=== PATIENT | female | born 1965 | race Caucasian/White ===

== ENCOUNTER 2017-07-31 21:07 | Inpatient (IN) | payer OTHER ==
[2017-07-31] MEDS ORDERED: LORAZEPAM 2 MG INJ IV (23:00)
[2017-07-31] MEDS ORDERED: ONDANSETRON 4 MG TAB PO (23:00)
[2017-07-31] MEDS: LEVETIRACETAM 750 MG TAB PO (23:00)
[2017-07-31] MEDS ORDERED: NACL 0.9% 3 ML SYG IV (23:00)
[2017-07-31 23:59] LABS: ADD MAN DIFF? NO
[2017-08-01 00:01] LABS: WHITE BLOOD COUNT 6.5 10^3/ul (4.8-10.8)
[2017-08-01 00:01] LABS: BASOPHILS % 0.5 % (0.0-2.0); EOSINOPHILS # 0.1 10^3/ul (0.0-0.5); EOSINOPHILS % 0.9 % (0.0-7.0); HEMATOCRIT 38.8 % (37.0-47.0); HEMOGLOBIN 13.8 g/dl (12.0-16.0); LYMPHOCYTES # 1.7 10^3/ul (0.8-2.9); LYMPHOCYTES % 26.2 % (15.0-51.0); MEAN CORPUSCULAR HEMOGLOBIN 32.7 pg (29.0-33.0); MEAN CORPUSCULAR HGB CONC 35.6 g/dl (32.0-37.0); MEAN CORPUSCULAR VOLUME 91.9 fl (82.0-101.0); MEAN PLATELET VOLUME 9.8 fl (7.4-10.4); MONOCYTE # 0.8 10^3/ul (0.3-0.9); MONOCYTES % 11.7 % (0.0-11.0); NEUTROPHIL # 3.9 10^3/ul (1.6-7.5); NEUTROPHILS % 60.5 % (39.0-77.0); PLATELET COUNT 179 10^3/UL (140-415); RED BLOOD COUNT 4.22 10^6/ul (4.20-5.40); RED CELL DISTRIBUTION WIDTH 12.5 % (11.5-14.5)
[2017-08-01] MEDS: ACETAMINOPHEN 325 MG TAB PO (00:15)
[2017-08-01] MEDS: clonAZEPAM 0.5 MG TAB PO ×3 (00:15→21:03)
[2017-08-01] MEDS: PHENOBARBITAL 32.4 MG TAB PO ×3 (00:18→21:02)
[2017-08-01] MEDS: LEVETIRACETAM 750 MG TAB PO ×3 (00:19→21:01)
[2017-08-01 00:22] LABS: HEMOGLOBIN A1C 5.4 % (0-5.9)
[2017-08-01 00:31] LABS: ALANINE AMINOTRANSFERASE 23 IU/L (13-69); ALBUMIN 4.4 g/dl (3.3-4.9); ALBUMIN/GLOBULIN RATIO 1.76; ALKALINE PHOSPHATASE 73 IU/L (42-121); ANION GAP 15 (8-16); ASPARTATE AMINO TRANSFERASE 21 IU/L (15-46); BILIRUBIN,INDIRECT 0.2 mg/dl (0-1.1); BILIRUBIN,TOTAL 0.2 mg/dl (0.2-1.3); BLOOD UREA NITROGEN 12 mg/dl (7-20); CALCIUM 8.9 mg/dl (8.4-10.2); CARBON DIOXIDE 27 mmol/L (21-31); CHLORIDE 104 mmol/L (97-110); CHOL/HDL RATIO 2.6 RATIO; CHOLESTEROL 186 mg/dl (100-200); GLUCOSE 110 mg/dl (70-220); HDL CHOLESTEROL 69 mg/dl (37-92); LDL CHOLESTEROL,CALCULATED 90 mg/dl; MAGNESIUM 1.9 mg/dl (1.7-2.5); POTASSIUM 3.5 mmol/L (3.5-5.1); SODIUM 142 mmol/L (135-144); TOTAL PROTEIN 6.9 g/dl (6.1-8.1); TRIGLYCERIDES 137 mg/dl (0-149)
[2017-08-01 00:53] LABS: THYROID STIMULATING HORMONE 0.586 MIU/L (0.465-4.680)
[2017-08-01 03:18] LABS: AMPHETAMINE/METHAMPHETAMINE Negative (NEGATIVE); BARBITURATES Positive (NEGATIVE); BENZODIAZEPINES Positive (NEGATIVE); CANNABINOIDS Negative (NEGATIVE); COCAINE Negative (NEGATIVE); OPIATES Negative (NEGATIVE)
[2017-08-01] MEDS: LAMOTRIGINE 100 MG TAB PO ×2 (09:14→21:02)
[2017-08-02 04:06] LABS: PHENOBARBITAL 28.7 mg/L (15.0-40.0)
[2017-08-02] MEDS: LAMOTRIGINE 100 MG TAB PO ×2 (09:09→20:33)
[2017-08-02] MEDS: PHENOBARBITAL 32.4 MG TAB PO ×2 (09:09→20:33)
[2017-08-02] MEDS: LEVETIRACETAM 750 MG TAB PO ×2 (09:09→20:32)
[2017-08-02] MEDS: clonAZEPAM 0.5 MG TAB PO ×2 (09:10→20:32)
[2017-08-03] MEDS: PHENOBARBITAL 32.4 MG TAB PO ×2 (09:23→21:21)
[2017-08-03] MEDS: clonAZEPAM 0.5 MG TAB PO ×2 (09:23→21:21)
[2017-08-03] MEDS: LAMOTRIGINE 100 MG TAB PO ×2 (09:24→21:21)
[2017-08-03] MEDS: LEVETIRACETAM 750 MG TAB PO ×2 (09:24→21:21)
[2017-08-04] MEDS: LEVETIRACETAM 750 MG TAB PO (09:01)
[2017-08-04] MEDS: PHENOBARBITAL 32.4 MG TAB PO (09:01)
[2017-08-04] MEDS: clonAZEPAM 0.5 MG TAB PO (09:01)
[2017-08-04] MEDS: LAMOTRIGINE 100 MG TAB PO (09:02)
[2017-08-04] MEDS: ACETAMINOPHEN 325 MG TAB PO (11:16)
== END 2017-08-04 14:59 | disposition home or self-care (01) | DRG 101 ==
LOC: MS4 21:07
DX: G40.409 Other generalized epilepsy and epileptic syndromes, not intractable, without status epilepticus (principal)
CPT/HCPCS: 70553; 80053; 80061; 80184; 80307; 83036; 83735; 84443; 85025

== ENCOUNTER 2018-07-17 05:30 | Inpatient (IN) | payer OTHER ==
[2018-07-17] MEDS ORDERED: BISACODYL (EC) 5 MG TAB PO (06:30)
[2018-07-17] MEDS ORDERED: DOCUSATE SODIUM 100 MG CAP PO (06:30)
[2018-07-17] MEDS ORDERED: LORAZEPAM 2 MG INJ IV (06:30)
[2018-07-17] MEDS ORDERED: ONDANSETRON 4 MG INJ IV (06:30)
[2018-07-17] MEDS ORDERED: NACL 0.9% 3 ML SYG IV (06:30)
[2018-07-17 07:47] LABS: ADD MAN DIFF? NO
[2018-07-17 08:01] LABS: WHITE BLOOD COUNT 6.1 10^3/ul (4.8-10.8)
[2018-07-17 08:01] LABS: BASOPHIL # 0.1 10^3/ul (0.0-0.1); BASOPHILS % 0.8 % (0.0-2.0); EOSINOPHILS # 0.1 10^3/ul (0.0-0.5); EOSINOPHILS % 1.6 % (0.0-7.0); HEMATOCRIT 39.6 % (37.0-47.0); LYMPHOCYTES # 1.8 10^3/ul (0.8-2.9); LYMPHOCYTES % 30.2 % (15.0-51.0); MEAN CORPUSCULAR HEMOGLOBIN 34.5 pg (29.0-33.0); MEAN CORPUSCULAR HGB CONC 35.4 g/dl (32.0-37.0); MEAN CORPUSCULAR VOLUME 97.5 fl (82.0-101.0); MEAN PLATELET VOLUME 10.2 fl (7.4-10.4); MONOCYTE # 0.5 10^3/ul (0.3-0.9); MONOCYTES % 8.2 % (0.0-11.0); NEUTROPHIL # 3.6 10^3/ul (1.6-7.5); NEUTROPHILS % 58.9 % (39.0-77.0); PLATELET COUNT 204 10^3/UL (140-415); RED BLOOD COUNT 4.06 10^6/ul (4.20-5.40)
[2018-07-17 08:23] LABS: ALANINE AMINOTRANSFERASE 15 IU/L (13-69); ALBUMIN 4.1 g/dl (3.3-4.9); ALBUMIN/GLOBULIN RATIO 1.64; ALKALINE PHOSPHATASE 81 IU/L (42-121); ANION GAP 11 (5-13); ASPARTATE AMINO TRANSFERASE 21 IU/L (15-46); BILIRUBIN,INDIRECT 0.4 mg/dl (0-1.1); BILIRUBIN,TOTAL 0.4 mg/dl (0.2-1.3); BLOOD UREA NITROGEN 12 mg/dl (7-20); CALCIUM 8.6 mg/dl (8.4-10.2); CARBON DIOXIDE 26 mmol/L (21-31); CHLORIDE 106 mmol/L (97-110); CREATININE 0.49 mg/dl (0.44-1.00); Estimated GFR > 60 mL/min (>60); GLUCOSE 88 mg/dl (70-220); POTASSIUM 3.5 mmol/L (3.5-5.1); SODIUM 143 mmol/L (135-144); TOTAL PROTEIN 6.6 g/dl (6.1-8.1)
[2018-07-17] MEDS: clonAZEPAM 0.5 MG TAB PO ×2 (08:48→21:00)
[2018-07-17] MEDS: LEVETIRACETAM (100 MG/ML) 5ML CUP PO ×2 (08:48→20:59)
[2018-07-17] MEDS: PHENOBARBITAL 32.4 MG TAB PO ×2 (08:48→21:39)
[2018-07-17] MEDS: LAMOTRIGINE 100 MG TAB PO ×2 (08:49→21:00)
[2018-07-17] MEDS ORDERED: LAMOTRIGINE 100 MG TAB PO (09:00)
[2018-07-17] MEDS ORDERED: LEVETIRACETAM (100 MG/ML PO SYG) PO (09:00)
[2018-07-17 09:46] LABS: ADD UMIC YES; UR ASCORBIC ACID NEGATIVE (NEGATIVE); UR BACTERIA FEW /HPF (NONE SEEN); UR BILIRUBIN (Dip) NEGATIVE (NEGATIVE); UR BLOOD (Dip) NEGATIVE (NEGATIVE); UR BUDDING YEAST FEW /HPF (NONE SEEN); UR CLARITY SLIGHTLY CLOUDY (CLEAR); UR COLOR YELLOW (YELLOW); UR GLUCOSE (Dip) NEGATIVE (NEGATIVE); UR KETONES (Dip) NEGATIVE (NEGATIVE); UR LEUKOCYTE ESTERASE (Dip) 3+ Leu/ul (NEGATIVE); UR MUCUS FEW /HPF (NONE SEEN); UR NITRITE (Dip) POSITIVE (NEGATIVE); UR RBC 1 /HPF (0-5); UR SPECIFIC GRAVITY (Dip) 1.012 (1.003-1.030); UR TOTAL PROTEIN (Dip) NEGATIVE (NEGATIVE); UR UROBILINOGEN (Dip) NEGATIVE (NEGATIVE); UR WBC 58 /HPF (0-5)
[2018-07-17] MEDS: NITROFURANTOIN (SR) 100 MG CAP PO ×2 (10:59→21:00)
[2018-07-17 17:43] LABS: MAGNESIUM 2.2 mg/dl (1.7-2.5)
[2018-07-17 17:43] LABS: PHOSPHORUS 3.8 mg/dl (2.5-4.9)
[2018-07-17 17:45] LABS: AMPHETAMINE/METHAMPHETAMINE Negative (NEGATIVE); BARBITURATES Positive (NEGATIVE); CANNABINOIDS Negative (NEGATIVE); COCAINE Negative (NEGATIVE); OPIATES Negative (NEGATIVE)
[2018-07-17 18:00] LABS: BENZODIAZEPINES Positive (NEGATIVE)
[2018-07-18 06:04] LABS: ADD MAN DIFF? NO
[2018-07-18 06:18] LABS: WHITE BLOOD COUNT 4.8 10^3/ul (4.8-10.8)
[2018-07-18 06:18] LABS: BASOPHILS % 0.8 % (0.0-2.0); EOSINOPHILS # 0.2 10^3/ul (0.0-0.5); EOSINOPHILS % 4.2 % (0.0-7.0); HEMATOCRIT 41.4 % (37.0-47.0); HEMOGLOBIN 14.3 g/dl (12.0-16.0); LYMPHOCYTES # 1.5 10^3/ul (0.8-2.9); LYMPHOCYTES % 31.7 % (15.0-51.0); MEAN CORPUSCULAR HEMOGLOBIN 34.5 pg (29.0-33.0); MEAN CORPUSCULAR HGB CONC 34.5 g/dl (32.0-37.0); MEAN CORPUSCULAR VOLUME 99.8 fl (82.0-101.0); MEAN PLATELET VOLUME 10.1 fl (7.4-10.4); MONOCYTE # 0.5 10^3/ul (0.3-0.9); MONOCYTES % 10.2 % (0.0-11.0); NEUTROPHIL # 2.5 10^3/ul (1.6-7.5); NEUTROPHILS % 52.7 % (39.0-77.0); PLATELET COUNT 192 10^3/UL (140-415); RED BLOOD COUNT 4.15 10^6/ul (4.20-5.40); RED CELL DISTRIBUTION WIDTH 11.9 % (11.5-14.5)
[2018-07-18 06:45] LABS: ALANINE AMINOTRANSFERASE 15 IU/L (13-69); ALBUMIN 4.1 g/dl (3.3-4.9); ALBUMIN/GLOBULIN RATIO 1.64; ALKALINE PHOSPHATASE 82 IU/L (42-121); ANION GAP 7 (5-13); ASPARTATE AMINO TRANSFERASE 24 IU/L (15-46); BILIRUBIN,INDIRECT 0.3 mg/dl (0-1.1); BILIRUBIN,TOTAL 0.3 mg/dl (0.2-1.3); BLOOD UREA NITROGEN 11 mg/dl (7-20); CALCIUM 8.9 mg/dl (8.4-10.2); CARBON DIOXIDE 26 mmol/L (21-31); CHLORIDE 109 mmol/L (97-110); CREATININE 0.46 mg/dl (0.44-1.00); Estimated GFR > 60 mL/min (>60); GLUCOSE 86 mg/dl (70-220); POTASSIUM 3.9 mmol/L (3.5-5.1); SODIUM 142 mmol/L (135-144); TOTAL PROTEIN 6.6 g/dl (6.1-8.1)
[2018-07-18] MEDS: ACETAMINOPHEN 325 MG TAB PO (07:29)
[2018-07-18] MEDS: clonAZEPAM 0.5 MG TAB PO (08:14)
[2018-07-18] MEDS: NITROFURANTOIN (SR) 100 MG CAP PO (08:14)
[2018-07-18] MEDS: LEVETIRACETAM (100 MG/ML) 5ML CUP PO (08:14)
[2018-07-18] MEDS: PHENOBARBITAL 32.4 MG TAB PO (08:15)
[2018-07-18] MEDS: LAMOTRIGINE 100 MG TAB PO (08:18)
[2018-07-19 08:41] LABS: LEVETIRACETAM 7.1 mcg/mL
== END 2018-07-18 12:08 | disposition home or self-care (01) | DRG 101 ==
LOC: 6WM 05:30
PROVIDERS: Family Medicine
DX: G40.909 Epilepsy, unspecified, not intractable, without status epilepticus (principal); N39.0 Urinary tract infection, site not specified; R51 Headache
CPT/HCPCS: 70553; 71045; 80053; 80177; 80184; 80307; 81001; 83036; 83735; 84100; 84443; 84703; 85025; 95819